=== PATIENT | female | born 1935 | race Caucasian/White ===

== ENCOUNTER → 2018-11-23 | Outpatient (CLI) | payer MEDICARE, OTHER ==
[~2018-11-23] MED LIST: ATENOLOL; CALCIUM500 MG PO; CIPRO 500MG TA500 MG PO; DYAZIDE 25 MG-31 CAP PO; FLAGYL500 MG PO; HCTZ; LORTAB 5/500 501 TAB PO; MAXZIDE; MICARDIS40 MG PO; SYNTHROID 0.0.025 MG PO; TENORMIN100 MG PO; ZOCOR 20MG20 MG PO; ZOCOR40 MG PO; ZOFRAN 4MG T4 MG/TAB PO; ZYLOPRIM 300MG300 MG PO
== END ==
LOC: ZCOL.LAB 10:46
DX: Z01.812 Encounter for preprocedural laboratory examination (principal); Z86.14 Personal history of Methicillin resistant Staphylococcus aureus infection

== ENCOUNTER → 2018-12-20 | Outpatient (CLI) | payer MEDICARE, OTHER | LOC: COL.RAD 09:09 | DX: J84.10 Pulmonary fibrosis, unspecified (principal); I71.2 Thoracic aortic aneurysm, without rupture; R91.1 Solitary pulmonary nodule; I70.0 Atherosclerosis of aorta; J98.59 Other diseases of mediastinum, not elsewhere classified | CPT/HCPCS: Q9967 ==

== ENCOUNTER → 2019-11-24 | Outpatient (CLI) | payer MEDICARE, OTHER | LOC: COL.RAD 10:14 | DX: M19.012 Primary osteoarthritis, left shoulder (principal); M75.122 Complete rotator cuff tear or rupture of left shoulder, not specified as traumatic ==